=== PATIENT | male | born 1950 | race Hispanic/Latino ===

== ENCOUNTER 2016-05-20 06:58 | Emergency (ER) | payer MEDICARE, BC ==
--- NOTE | 2016-05-20 07:26 | ERNOTE ---
Dizziness ER Record Date of Service: 05/20/16 Presenting Symptoms: dizziness Time Seen by Provider: 05/20/16 07:24 Source: patient Immunizations: IMMUNIZATION HX Immunizations Up to Date Yes History of Influenza Vaccine Yes Hx Pneumococcal Vaccination Yes Allergies/Adverse Reactions: Allergies Allergy/AdvReac Type Severity Reaction Status Date / Time vancomycin AdvReac Other Verified 05/20/16 07:09 Home Medications: HOME MEDICATIONS Aspirin [Ecotrin] 81 mg PO DAILY 10/13/13 [Last Taken 04/26/14 07:00 81 mg] Carvedilol [Coreg] 25 mg PO BID 10/13/13 [Last Taken 04/26/14 07:00 25 mg] Gabapentin 300 mg PO HS 10/13/13 [Last Taken 04/25/14 17:00 300 mg] Insulin Glargine,Hum.rec.anlog [Lantus] 20 units SC BID 10/13/13 [Last Taken 08/05 07:00 20 u] [address] Oil/[place]-3 Fatty Acids [Fish Oil] 1,200 mg PO DAILY 10/13/13 [Last Taken 04/26/14 07:00 1] L. Acidophilus/L.bulgaricus [Lactinex Packet] 1 each PO AC #0 box 11/17/13 [ Last Taken Unknown] Furosemide [Lasix] 40 mg PO DAILY 04/26/14 [Last Taken 04/26/14 07:00 40 MG] Lisinopril [Zestril] 10 mg PO DAILY 04/26/14 [Last Taken 04/26/14 07:00 10 MG] Simvastatin [Zocor] 40 mg PO DAILY 04/26/14 [Last Taken 04/25/14 17:00 40 MG] Oseltamivir Phosphate [Tamiflu] 75 mg PO DAILY #10 cap 05/20/16 [Last Taken Unknown] - History of Present Illness Narrative: Sixto has not been feeling good for the last 2-3 days. Complaints of mild coughing, and a fever of 102 at about 0300 hours. He denies any pain, shortness of breath, chills, N/V/D. The triage complaint had been dizziness, but on further questioning, there was no vertigo or light headedness, but has been feeling a bit "off". Denies any weakness in the upper or lower extremities or headaches. The had the flu three weeks ago. 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 Denies any chest pain with walking or stair climbing. PMH: DM, CAD, Renal failure, [place] PSH: Left toes amputation; CABG Timing and Duration: sudden onset Severity: max: mild Severity: currently: mild Associated Symptoms: Present: none Sense of movement: Present: none Fainted/near fainted while:: Absent: standing, sitting, supine Decreased ability to stand/walk:: Present: weak - minimal Modifying Factors - (Improves): Reports: nothing Modifying Factors - (Worsens): Reports: other - nothing Review of Systems - Review of Systems Constitutional: Present: See HPI EYE: Present: no symptoms reported ENT: Present: no symptoms reported Respiratory: Present: no symptoms reported Cardiology: Present: no symptoms reported Gastrointestinal/Abdominal: Present: no symptoms reported Genitourinary: Present: no symptoms reported Musculoskeletal: Present: no symptoms reported Skin: Present: no symptoms reported Neurological: Present: no symptoms reported Endocrine: Present: no symptoms reported Hematologic/Lymphatic: Present: no symptoms reported Psych: Present: no symptoms reported - Patient's Past Medical History Patient History - Medical: Diabetes Type 2 Insulin Dependent, Renal Failure Patient History - Cardiac/Respiratory: No pertinent hx Patient History - Cancer: No Hx of Cancer Patient History - Surgical Procedures: Cholecystectomy Patient History - Other: None - Social History Living Situations: other Smoking Status: Current every day smoker Have you smoked in the past 12 months: Yes Do you dip or chew tobacco: No Patient requests Smoking Cessation Consult: No Initiate information on Smoking Cessation: No Alcohol Use: none Drug Use: none - Immunizations Immunizations Up to Date: Yes Hx Pneumococcal Vaccination: Yes History of Influenza Vaccine: Yes Physical Exam - Physical Exam General Appearance: Present: no apparent distress Eye Exam: Normal inspection: bilateral Ears, Nose, Throat: Present: normal ENT inspection Neck: Present: normal inspection Respiratory: Present: no respiratory distress, normal breath sounds, no accessory muscle use Cardiovascular/Chest: Present: regular rate, rhythm Gastrointestinal/Abdominal: Present: nontender, nondistended, soft, no organomegaly Back Exam: Present: normal inspection, normal range of motion Extremity Exam: Present: normal inspection Skin Exam: Present: normal color ED Progress - Results and Orders Patient's Lab Results:: I have reviewed the patient's lab results. - Vital Signs Patient's Vital Signs:: I have reviewed the patient's vital signs. Vital Signs: Vital Signs 05/20/16 05/20/16 07:02 07:16 Temperature 37.5 C 37.5 C Pulse Rate 94 94 Respiratory 16 16 Rate Blood Pressure 147/75 147/75 O2 Sat by Pulse 90 100 Oximetry - EKG EKG: NSR, ST depression - lateral leads; inverted T waves inferiorly., other EKG read: Interp. by me EKG Comments: In comparison to the EKG from 04/06/11 the ischemic pattern is new. - Progress/Reassessment Chief Complaint: Dizziness Progress:: Unchanged Progress Note-Subjective: 05/20/16 08:09 Stable. 05/20/16 08:17 The radiology reading did suggest mild CHF. In light the patient not having any shortness of breath or pain, it is unlikely that there is any clinically significant CHF. 05/20/16 08:[address] Dooley (cardiology) who will arrange an early follow up. - Transfer of Care Expected Disposition: Discharge Departure Clinical Impression: Influenza A - Departure Disposition: Home self-care Condition: Good Instructions: Influenza, Adult, [id number] Print Language: Norwegian Additional Instructions: Follow up with your physician on Sunday. If you feel worse return to the ED as needed. Dr. Dooley will have someone from the office contact you next week to have an early follow up with cardiology. If you have any chest pain return to the ED for evaluation. Referrals: Steve Cervantes MD [Primary Care Provider] - Prescriptions: Oseltamivir Phosphate [Tamiflu] 75 mg PO DAILY #10 cap
[2016-05-20 07:32] LABS: Hematocrit 28.9 % (42.0-52.0); Hemoglobin 10.1 gm/dL (13.5-18.0); Mean Cell Volume 114.2 fl (78-100); Mean Corpuscular Hemoglobin 39.9 pg (27-31); Mean Corpuscular Hgb Conc 34.9 g/dl (32-36); Mean Platelet Volume 12.1 fl (6.0-9.5); Neutrophil # 2.9 K/mm3 (1.3-6.0); Neutrophil % 84.1 % (42-75.0); Platelet Count 83 K/mm3 (150-450); Red Blood Count 2.53 M/mm3 (4.7-6.0); Red Cell Distribution Width 14.3 % (11.5-14.0); White Blood Count 3.5 K/mm3 (4.0-10.5)
[2016-05-20 07:48] LABS: Anion Gap 10.5 mmol/L (6.8-13.8); BUN/Creatinine Ratio 15.2 (9.0-21.6); Carbon Dioxide 27.4 mmol/L (24-32.6); Estimated Creat Clear 30.7; Potassium 4.9 mmol/L (3.4-4.6)
[2016-05-20 07:49] LABS: Troponin I 0.092 ng/ml (0.00-0.10)
[2016-05-20 08:23] LABS: Urine Bilirubin Negative (NEGATIVE); Urine Blood 250 /ul (NEGATIVE); Urine Ketone 5 mg/dL (NEGATIVE); Urine Nitrite Negative (NEGATIVE); Urine Protein >=300 mg/dL (NEGATIVE); Urine Specific Gravity 1.025 SP.GR. (1.005-1.030); Urine Urobilinogen 4 EU/dl (NORMAL)
[2016-05-20 08:29] LABS: Urine Color Dark Yellow
[2016-05-20 08:30] LABS: Urine Appearance Slightly Cloudy; Urine Bacteria None Seen; Urine WBC 0-5 /hpf (0-5)
[2016-05-20 08:52] VITALS: BP 165/90
== END 2016-05-20 08:51 | disposition home or self-care (01) ==
LOC: ER 06:58
DX: J10.1 Influenza due to other identified influenza virus with other respiratory manifestations (principal)

== ENCOUNTER 2016-09-26 06:38 | Day surgery (SDC) | payer MEDICARE, BC ==
[~2016-09-26 06:38] MED LIST: RINGERS SOLUTION,LACTATED 1,000 ML IV PRN
--- OUTSIDE RECORDS SUMMARY | 2016-09-26 06:43 | XMS REPORT | Continuity of Care Document ---
:1950 Author Organization [facility] ([facility]) Address [address] [place] [address] Phone [phone] Care Team Providers Name Role Phone ElizabethSteve omalley Primary Care Provider [phone] Source Comments This disclosure is being made pursuant to the Care Everywhere program, applicable federal and state laws, and may not contain all informaitonavailable regarding this patient.[facility] ([facility]) Active Allergies and Adverse Reactions Allergen Noted Date Severity Reactions Comments Vancomycin 10/23/2011 Rash In 08/2011, had stump site infection. On vanc and Piperacillin/Tazobactam. Had rash. We stopped Piperacillin/Tazobactam, but rash continued. We stopped Vanc and rash disappeared. Current Medications Prescription Sig. Disp. Refills Start Date End Date Status aspirin 81 mg EC tablet Take 81 mg by mouth Active daily. carvedilol 25 mg tablet Take 25 mg by mouth Active 2 times daily with meals. gabapentin 300 mg Take 300 mg by mouth Active capsule at bedtime as needed. Indications: NEUROPATHIC PAIN simvastatin 40 mg tablet Take 40 mg by mouth Active every evening. insulin glargine Inject 20 U SC twice 10 mL 11 10/13/2013 Active (LanTUS) 100 unit/mL daily Indications: injection vial TYPE 2 DIABETES MELLITUS SUPPLY CONTOUR test 2 06/25/2015 Active strips SUPPLY MICROLET lancets 2 06/15/2015 Active potassium chloride 10 2 06/09/2015 Active mEq tablet SUPPLY insulin syringe 1 06/23/2015 Active w/ needle U-100 0.5 mL 30 g amLODIPine 2.5 mg tablet TK 1 T PO QD 3 11/29/2015 Active FLUVIRIN 1829-4672 45 ADM 0.5ML IM UTD 0 12/06/2015 Active mcg (15 mcg x 3)/0.5 mL susp furosemide 20 mg tablet TK 1 T PO QD 3 11/17/2015 Active lisinopril 40 mg tablet TK 1 T PO QD 3 11/29/2015 Active SUPPLY insulin syringe USING TID 3 11/16/2015 Active w/ needle U-100 1 mL 30 g x 11/05" cholecalciferol (VITAMIN Take 2,000 Units by Active D3) 2,000 unit capsule mouth daily. omega-3 fatty acids 1 Take 2 g by mouth 2 Active gram capsule times daily. 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 Right Eye Left Eye Time To Recurrence: Time To Recurrence: Date VA (D cc) CMT Status Procedure VA (D cc) CMT Status Procedure Cmts 01/03/2016 20/40 sc Avastin 242482-8 30 -2 sc IMO Update Anemia 10/07/2013 Overview: Asymptomatic, will monitor Type 2 diabetes mellitus with diabetic foot ulcer 10/06/2013 Overview: Consider endocrine consult, monitor blood sugars adjust insulin Hyperkalemia 10/06/2013 Overview: Monitor electrolytes Carotid artery stenosis 10/28/2012 Overview: Carotid 1) BILATERAL ATHEROSCLEROTIC DISEASE OF THE CAROTID ARTERIES. 2) LEFT-SIDE VELOCITY MEASUREMENTS AND OTHER CRITERIA CORRESPONDS TO APPROXIMATELY 50-59% STENOSIS. 3) NO SIGNIFICANT HEMODYNAMICALLY SIGNIFICANT STENOSIS ON THE RIGHT SIDE. 06/24 Osteomyelitis 09/14/2011 Overview: Amputation and Iv antibiotics PVD (peripheral vascular disease) 07/26/2011 Overview: Vascular History: Risk factors: smoking, HTN, DM Cardiac history: 4 vessel CABG 1999 (outside hospital) Anti-thrombotic medication: aspirin and plavix: will stop plavix today, Apr 29, 2012 Carotid screenin04/10/11: right ICA 1-49%, left ICA 50-59% ~ October 2012: Right ICA 1-49%, Left ICA 50-59%, Verts antegrade Aortic screening: negative on 04/10/2011 Vascular Procedures: ~ Right TA angioplasty and 1st toe amputation on 06/07/11 ~ Right TA angioplasty and 1st toe amputation site debridement 07/26/11 ~ 09/11/2011 Incision and drainage of right forefoot abscess. (Mayra) ~ 08/27/2013 Pelvic and left lower extremity arteriographyAngioplasty of high- grade stenosis of the proximal anterior tibial artery.(Mayra) ~10/04/2013 Left 3rd and 4th toe amputation (Lisa) ~04/13/2014: Revision of left foot transmetatarsal amputation with debridement Closure of amputation stump Gangrene of toe 06/07/2011 Overview: S/p left 3rd, 4th toe amputations. Debridement of forefoot. Dakins' dressing changes. -PT consulted: NWB on LLE. Recommend SNF. Coronary artery disease Overview: Formatting of this note may be different from the original. CARDIOVASCULAR PROCEDURES TOWER DRAGLINE OPERATOR: Cath (EF.78, 100% Mid LAD, 70% Distal CX, 100% Mid RCA, Right Dominant, PUTNAM graft to LAD patent.SVG to OM1 patent. SVG OM2 patent. SVG RCA patent.) - 2005 ECHO/MUGA: Echo (Normal EF, Mild LVH) - 10/23/2006 Echo (EF.35, Dilated cardiomyopathy.) - 10/28/2001 Carotid 1) BILATERAL ATHEROSCLEROTIC DISEASE OF THE CAROTID ARTERIES. 2) LEFT-SIDE VELOCITY MEASUREMENTS AND OTHER CRITERIA CORRESPONDS TO APPROXIMATELY 50-59% STENOSIS. 3) NO SIGNIFICANT HEMODYNAMICALLY SIGNIFICANT STENOSIS ON THE RIGHT SIDE. 06/24 Hypertension Hyperlipidemia Hx of CABG Resolved Problems Problem Noted Date Resolved Date PICC (peripherally inserted central catheter) in place 05/19/2014 07/10/2015 Medication monitoring encounter 05/19/2014 07/10/2015 Anemia due to blood loss, acute 04/14/2014 07/10/2015 Overview: Monitor vital signs and h/h replace per protocol Pain in left extremity 04/14/2014 07/10/2015 Acute blood loss anemia 04/13/2014 07/10/2015 Overview: Asymptomatic monitor and replace per University protocol Diabetic hypoglycemia 10/09/2013 07/10/2015 Overview: Treated w/ D50 Acute hyperglycemia 10/07/2013 07/13/2015 Overview: Sliding scale insulin, monitor CBG Atherosclerosis of [place] arteries of the extremities, 10/28/2012 10/06/2013 unspecified longterm current use of antibiotics 10/12/2011 10/06/2013 Infection 09/14/2011 07/13/2015 Overview: Monitor CBC and vital signs Non-healing amputation site 09/11/2011 07/13/2015 Overview: Monitor site, check CBC daily Diabetes mellitus 07/26/2011 10/06/2013 Amputation of great toe, right, traumatic 06/08/2011 10/06/2013 Overview: Not traumatic Pain 06/08/2011 10/06/2013 Diabetic 05/04/2010 10/06/2013 Overview: Other Ocular Diagnoses: 1. None Ocular Procedures OD: 1. None 2. Ocular Procedures OS: 1. Phaco/IOL Non-Ocular Medical History: 1. DM 2. HTN 3. Cardiac bypass surgery Most Recent Encounters Date Type Specialty Providers Description 07/20/2016 Office Visit Heart and Vascular Lilia Grover MD Chief Comp: Patient Reported Reason For Visit 07/10/2016 [facility] Heart and Vascular Heidi Nunez Chief Comp: Patient Encounter MD Diana Reported Reason For Visit 07/10/2016 [facility] Heart and Vascular Heidi Nunez Chief Comp: Patient Encounter MD Diana Reported Reason For Visit 07/10/2016 [facility] Heart and Vascular Default, Other Chief Comp: Patient Encounter Billg - Defo Reported Reason For Heidi Nunez Visit MD Diana 07/10/2016 Office Visit Srg Vascular Default, Other Dx: PVD (peripheral Billg - Defo vascular disease) Heidi Nunez (Primary Dx) MD Diana 07/03/2016 Office Visit Ophthalmology - Evin Powers MD Chief Comp: Patient Specialty Reported Reason For Visit Immunizations Name Dates Previously Given Next Due Influenza, unspecified 01/21/2014,01/21/2013,01/30/2011 Pneumococcal, unspecified 01/30/2010 Social History Tobacco Use Types Packs/Day Years Used Date Current Some Day Smoker Cigarettes 0.25 10 Smokeless Tobacco: Never Used Tobacco Cessation:Ready to Quit: No; Counseling Given: No Comments:was smoking 2 cigs a day before hospitalization Alcohol Use Drinks/Week oz/Week Comments No Last Filed Vital Signs Vital Sign Reading Time Taken Blood Pressure 155/72 07/10/2016 11:10 AM CDT Pulse 86 07/10/2016 11:10 AM CDT Temperature 36.4 C (97.5 F) 07/10/2016 11:08 AM CDT Respiratory Rate 18 04/14/2014 4:21 PM SPECIAL EDUCATION ADMINISTRATOR Height 1.626 m (5' 4.02") 07/10/2016 11:08 AM CDT Weight 78.1 kg (172 lb 2.9 oz) 07/10/2016 11:08 AM CDT Body Mass Index 29.54 07/10/2016 11:08 AM CDT Oxygen Saturation 95% 04/14/2014 4:21 PM SPECIAL EDUCATION ADMINISTRATOR Plan of Care Date Type Specialty Providers Description 05/29/2017 Appointment Heart and Vascular Lilia Grover MD Chief Comp: Patient [address] [place] [address] Visit [phone] (Fax) Health Maintenance Due Date Last Done Comments HCV Screening 1950 Hepatitis B Vaccine (1 of 3 - Primary 1950 Series) Tdap Vaccine 1960 DIABETIC: Cholesterol 11/08/1967 Diabetic: Hdl 11/08/1967 Diabetic: Ldl 11/08/1967 DIABETIC: Microalbumin 11/08/1967 DIABETIC: Triglycerides 11/08/1967 Td Vaccine 11/08/1967 Colonoscopy 1999 Prostate Cancer Screening 11/08/1999 Zoster Vaccine 2009 DIABETIC: Foot Exam 10/04/2010 DIABETIC: Retinal Eye Exam 10/04/2010 DIABETIC: Hemoglobin A1C 04/06/2014 10/05/2013, 05/15/2011 Pneumococcal Vaccine (1 of 2 - PCV13) 2014 Influenza Vaccine: Seasonal Completed 01/21/2014, 01/21/2013, 01/30/2011 Results from Last 3 Months VASC LINDY, PVR, TOE BP (07/10/2016 10:58 AM) Component Value Range VASC RIGHT TOE PRESSURE AMP mmHg VASC LEFT TOE PRESSURE AMP mmHg VASC LOWER EXT ARTERIAL DUPLEX (UNILATERAL) (07/10/2016 10:58 AM) Component Value Range VASC LEFT RESTAURANT OPERATIONS MANAGER DIST PSV 118 cm/sec VASC LEFT RESTAURANT OPERATIONS MANAGER DIST PEDV 0 cm/sec VASC LEFT PROFUNDA PSV 92 cm/sec VASC LEFT PROFUNDA PEDV 0 cm/sec VASC LEFT SUPER FEMORAL PROX PSV 105 cm/sec VASC LEFT SUPER FEMORAL PROX PEDV 0 cm/sec VASC LEFT SUPER FEMORAL MID PSV 99 cm/sec VASC LEFT SUPER FEMORAL MID PEDV 0 cm/sec VASC LEFT SUPER FEMORAL DIST PSV 87 cm/sec VASC LEFT SUPER FEMORAL DIST PEDV 0 cm/sec VASC LEFT POPLITEAL AK PSV 111 cm/sec VASC LEFT POPLITEAL AK PEDV 0 cm/sec VASC LEFT POPLITEAL BK PSV 142 cm/sec VASC LEFT POPLITEAL BK PEDV 0 cm/sec VASC LEFT FIBER DRIER OPERATOR PROX PSV 72 cm/sec VASC LEFT FIBER DRIER OPERATOR PROX PEDV 0 cm/sec VASC LEFT PERONEAL MID PSV 21 cm/sec VASC LEFT PERONEAL MID PEDV 0 cm/sec VASC LEFT PERONEAL DIST PSV 24 cm/sec VASC LEFT PERONEAL DIST PEDV 0 cm/sec VASC LEFT ANT TIBIAL PROX PSV 96 cm/sec VASC LEFT ANT TIBIAL PROX PEDV 0 cm/sec VASC LEFT ANT TIBIAL MID PSV 97 cm/sec VASC LEFT ANT TIBIAL MID PEDV 0 cm/sec VASC LEFT ANT TIBIAL DIST PSV 118 cm/sec VASC LEFT ANT TIBIAL DIST PEDV 16 cm/sec VASC LEFT DPA PSV 148 cm/sec VASC LEFT DPA PEDV 20 cm/sec
[2016-09-26] MEDS ORDERED: RINGERS SOLUTION,LACTATED 1,000 ML IV ONE (07:27)
[2016-09-26 09:21] VITALS: BP 152/67
--- NOTE | 2016-09-26 09:26 | OR ---
Operative Report - Dictated Report Narrative: Date: 09/26/2016 PRE: Occult blood, Weight loss POST: normal colon PROC: colonoscopy SURG: Shaheen Awad MD EBL: none SPEC: none ANES: MAC per RADIOLOGIC TECHNOLOGIST MAMMOGRAM Description: After informed consent and appropriate sedation the patient was placed in the left lateral decubitus position. A flexible fiberoptic video colonoscope was introduced and advanced under direct vision without difficulty to the cecum. The usual landmarks were identified. Preparation was good and good views were obtained. The findings were of a normal cecum, ascending colon, hepatic flexure, transverse colon, splenic flexure, descending colon, sigmoid colon, and rectum. The mucosal color, vasculature and texture were normal throughout. No suspicious masses were seen. The patient tolerated the procedure well without apparent complications and was discharged from the endoscopy suite in stable condition.
== END 2016-09-26 06:39 | disposition home or self-care (01) ==
LOC: AMB 06:38
PROVIDERS: ATTEND Specialist
PROC: 0DJD8ZZ Inspection of Lower Intestinal Tract, Via Natural or Artificial Opening Endoscopic (ICD-10-PCS; principal; 2016-09-26 08:20)
DX: Z12.11 Encounter for screening for malignant neoplasm of colon (principal); I11.0 Hypertensive heart disease with heart failure; I50.9 Heart failure, unspecified; I42.9 Cardiomyopathy, unspecified; E11.9 Type 2 diabetes mellitus without complications; E78.5 Hyperlipidemia, unspecified; D64.9 Anemia, unspecified; E53.8 Deficiency of other specified B group vitamins; I25.10 Atherosclerotic heart disease of native coronary artery without angina pectoris; R63.4 Abnormal weight loss; F17.210 Nicotine dependence, cigarettes, uncomplicated; Z68.29 Body mass index [BMI] 29.0-29.9, adult

== ENCOUNTER 2017-02-06 11:32 | Observation (INO) | payer MEDICARE, BC ==
[2017-02-06] MEDS ORDERED: ONDANSETRON HCL/PF 2 MG/ML VIAL IV ONE (12:07)
--- NOTE | 2017-02-06 12:10 | ERNOTE ---
Medical Problem HPI - Narrative Date of Service: 02/06/17 - General Chief Complaint: General Assessment Time Seen by Provider: 02/06/17 12:08 Source: patient Exam Limitations: no limitations - Immun/Allergies/Home Medications Immunizations: IMMUNIZATION HX Immunizations Up to Date Yes History of Influenza Vaccine Yes Hx Pneumococcal Vaccination Yes Allergies/Adverse Reactions: Allergies vancomycin Allergy (Intermediate, Verified 02/06/17 12:17) RASH Home Medications: HOME MEDICATIONS Aspirin [Ecotrin] 81 mg PO DAILY 10/13/13 [Last Taken 04/26/14 07:00 81 mg] Carvedilol [Coreg] 25 mg PO BID 10/13/13 [Last Taken 04/26/14 07:00 25 mg] Gabapentin 300 mg PO TID PRN 10/13/13 [Last Taken 04/25/14 17:00 300 mg] Insulin Glargine,Hum.rec.anlog [Lantus] 36 units SC QAM 10/13/13 [Last Taken 08/05 07:00 20 u] [place] Oil/[place]-3 Fatty Acids [Fish Oil] 1,200 mg PO DAILY 10/13/13 [Last Taken 04/26/14 07:00 1] Simvastatin [Zocor] 40 mg PO DAILY 04/26/14 [Last Taken 04/25/14 17:00 40 MG] Blood-Glucose Meter [Blood Glucose Monitoring] 1 each MC TID 09/12/16 [Last Taken Unknown] Cholecalciferol (Vitamin D3) [Vitamin D3] 2,000 unit PO DAILY 09/12/16 [Last Taken Unknown] Cyanocobalamin [Vitamin B-12] 1,000 mcg IJ Q30D 09/12/16 [Last Taken Unknown] Furosemide [Lasix] 10 mg PO DAILY 09/12/16 [Last Taken Unknown] Insulin Glargine,Hum.rec.anlog [Lantus] 30 units SC HS 09/12/16 [Last Taken Unknown] Lisinopril [Zestril] 20 mg PO DAILY 09/12/16 [Last Taken Unknown] - History of Present History Narrative: This patient is an extremely poor historian. He presents to the emergency room stating "I don't feel right" but I don't feel right he means that he feels slightly nauseated and has been wanting to throw up but has not vomited. He denies any chest pain shortness of breath palpitations or diaphoresis. Review of Systems - Review of Systems Constitutional: Present: weakness EYE: Present: no symptoms reported ENT: Present: no symptoms reported Respiratory: Present: no symptoms reported Cardiology: Present: no symptoms reported Gastrointestinal/Abdominal: Present: See HPI Genitourinary: Present: no symptoms reported Musculoskeletal: Present: no symptoms reported Skin: Present: no symptoms reported - Patient's Past Medical History Patient History - Medical: Anemia, Diabetes Type 2, Other Patient History - Cardiac/Respiratory: Coronary Heart Disease, CHF, Hyperlipidemia, Peripheral Vascular Disease Patient History - Cancer: No Hx of Cancer Patient History - Surgical Procedures: Cataracts, Cholecystectomy, Colonoscopy, Coronary Bypass Surgery, Cardiac stent, T & A, Other, Hernia Repair Patient History - Other: None - Family History Brother Family History - Medical: Diabetes Type 2 Family History - Cardiac/Respiratory: No pertinent hx Family History - Cancer: Other Father Family History - Medical: No pertinent hx Family History - Cardiac/Respiratory: Myocardial Infarction Family History - Cancer: No pertinent family hx Mother Family History - Medical: , Arthritis Family History - Cardiac/Respiratory: Pneumonia Family History - Cancer: No pertinent family hx Sister Family History - Medical: Other Family History - Cardiac/Respiratory: No pertinent hx Family History - Cancer: No pertinent family hx - Social History Living Situations: home Abuse History: No History of abuse Psych History: No pertinent hx Smoking Status: Current every day smoker Alcohol Use: none Drug Use: none - Immunizations Immunizations Up to Date: Yes Hx Pneumococcal Vaccination: Yes History of Influenza Vaccine: Yes Physical Exam - Physical Exam General Appearance: Present: wd/wn, alert, no apparent distress, nml sucking/ feed Head Exam: Present: no evidence of injury Ears, Nose, Throat: Present: normal ENT inspection Neck: Present: normal inspection, nontender Respiratory: Present: no respiratory distress, normal breath sounds, no accessory muscle use, chest nontender, lungs clear Cardiovascular/Chest: Present: regular rate, rhythm, no murmur, normal peripheral pulses Gastrointestinal/Abdominal: Present: normal bowel sounds, nontender, nondistended, soft, no organomegaly ED Progress - Results and Orders Patient's Lab Results:: I have reviewed the patient's lab results. - Vital Signs Patient's Vital Signs:: I have reviewed the patient's vital signs. Vital Signs: Vital Signs 02/06/17 11:46 Temperature 36.3 C L Pulse Rate 60 Respiratory 12 Rate Blood Pressure 145/70 - EKG EKG: NSR - H and does appear to have some ST segment depressions however he has no chest pain per se he only has nausea. - X-Ray X-Ray #1 X-Ray: chest - Progress/Reassessment Chief Complaint: General Assessment Plan - Plan Plan: In light of this patient's risk factors and findings on EKG I believe this patient warrants an [facility]. Chloe Fair was consulted in regards to this patient and patient will be admitted. Patient's nausea was treated with Zofran 4 mg IV and Plavix, aspirin , and Lipitor were given. Departure Clinical Impression: Abnormal EKG - Departure Disposition: [facility] Condition: Fair Referrals: Steve Cervantes MD [Primary Care Provider] -
[2017-02-06] MEDS ORDERED: ONDANSETRON HCL/PF 2 MG/ML VIAL ONE (12:13)
[2017-02-06 12:21] LABS: Hematocrit 39.1 % (42.0-52.0); Hemoglobin 13.5 gm/dL (13.5-18.0); Mean Cell Volume 91.6 fl (78-100); Mean Corpuscular Hemoglobin 31.6 pg (27-31); Mean Corpuscular Hgb Conc 34.5 g/dl (32-36); Neutrophil # 6.3 K/mm3 (1.3-6.0); Neutrophil % 82.1 % (42-75.0); Platelet Count 127 K/mm3 (150-450); Red Blood Count 4.27 M/mm3 (4.7-6.0); Red Cell Distribution Width 13.1 % (11.5-14.0); White Blood Count 7.6 K/mm3 (4.0-10.5)
[2017-02-06 12:47] LABS: Troponin I 0.021 ng/ml (0.00-0.10)
[2017-02-06 12:52] LABS: Albumin * 2.9 gm/dl (3.4-5.0); Anion Gap 12.4 mmol/L (6.8-13.8); BUN/Creatinine Ratio 18.6 (9.0-21.6); Bilirubin, Total 0.8 mg/dL (0.0-1.1); CKMB 0.5 ng/mL (0.0-9.0); Ca. Corrected For Albumin 9.1 mg/dL (8.4-10.2); Calcium * 8.5 mg/dL (7.9-10.9); Carbon Dioxide 28.2 mmol/L (24-32.6); Potassium 4.6 mmol/L (3.4-4.6); Total Protein 6.9 gm/dL (6.2-8.2)
[2017-02-06] MEDS ORDERED: ASPIRIN 81 MG TAB.CHEW PO ONE (13:25)
[2017-02-06] MEDS ORDERED: CLOPIDOGREL BISULFATE 75 MG TABLET PO STA (13:25)
[2017-02-06] MEDS ORDERED: ATORVASTATIN CALCIUM 40 MG TABLET PO ONE (13:26)
[2017-02-06] MEDS ORDERED: ATORVASTATIN CALCIUM 40 MG TABLET ONE (13:30)
[2017-02-06] MEDS ORDERED: CLOPIDOGREL BISULFATE 75 MG TABLET ONE (13:31)
[2017-02-06] MEDS ORDERED: ASPIRIN 81 MG TAB.CHEW ONE (13:31)
[2017-02-06] MEDS ORDERED: GABAPENTIN 300 MG CAPSULE PO PRN (17:21)
--- NOTE | 2017-02-06 17:29 | HP ---
Chief Complaint - Chief Complaint Date of Service: 02/06/17 Time of Service: 17:24 Chief Complaint: I don' feel well History of Present Illness: This is a 66 year old diabetic man with hypertension, hyperlipidemia and obesity who came to the [facility] ER because he didn't feel well. He said "I don't feel right" meaning he felt slightly nauseated and had been wanting to throw up but did not. He denied any chest pain, shortness of breath palpitations or diaphoresis. With these subtle complaints, in combination with multiple risk factors, he was admitted for coronary disease observation overnight. He normally sees Dr. Cervantes, but I was oncall, so tonight he came to me. Right now he feels ok. - Patient's Past Medical History Patient History - Medical: Anemia, Diabetes Type 2, Other Patient History - Cardiac/Respiratory: Coronary Heart Disease, CHF, Hyperlipidemia, Peripheral Vascular Disease Patient History - Cancer: No Hx of Cancer Patient History - Surgical Procedures: Cataracts, Cholecystectomy, Colonoscopy, Coronary Bypass Surgery, Cardiac stent, T & A, Other, Hernia Repair Patient History - Other: None - Family History Brother Family History - Medical: Diabetes Type 2 Family History - Cardiac/Respiratory: No pertinent hx Family History - Cancer: Other Father Family History - Medical: No pertinent hx Family History - Cardiac/Respiratory: Myocardial Infarction Family History - Cancer: No pertinent family hx Mother Family History - Medical: , Arthritis Family History - Cardiac/Respiratory: Pneumonia Family History - Cancer: No pertinent family hx Sister Family History - Medical: Other Family History - Cardiac/Respiratory: No pertinent hx Family History - Cancer: No pertinent family hx - Social History Living Situations: significant other Abuse History: No History of abuse Psych History: No pertinent hx Smoking Status: Current every day smoker Have you smoked in the past 12 months: Yes Do you dip or chew tobacco: No Smoking Start Date: 04/23/97 Patient requests Smoking Cessation Consult: No Initiate information on Smoking Cessation: No Alcohol Use: none Drug Use: none - Immunizations Immunizations Up to Date: Yes Hx Pneumococcal Vaccination: Yes History of Influenza Vaccine: Yes Review Of Systems (GEN) - Review of Systems Generalized/Overall Review: Present: No Symptoms Reported EENTM: Present: No Symptoms Reported Respiratory: Present: No Symptoms Reported Cardiac: Present: No Symptoms Reported Abdominal: Present: No Symptoms Reported Genitourinary: Present: No Symptoms Reported Musculoskeletal: Present: No Symptoms Reported Neurological: Present: No Symptoms Reported Skin: Present: No Symptoms Reported Endocrine: Present: No Symptoms Reported Misc: All systems neg except as marked Immunizations: IMMUNIZATION HX Immunizations Up to Date Yes History of Influenza Vaccine Yes Hx Pneumococcal Vaccination Yes Allergies/Adverse Reactions: Allergies Allergy/AdvReac Type Severity Reaction Status Date / Time vancomycin Allergy Intermediate RASH Verified 02/06/17 12:17 Home Medications: HOME MEDICATIONS Aspirin [Ecotrin] 81 mg PO DAILY 10/13/13 [Last Taken 04/26/14 07:00 81 mg] Carvedilol [Coreg] 25 mg PO BID 10/13/13 [Last Taken 04/26/14 07:00 25 mg] Gabapentin 300 mg PO TID PRN 10/13/13 [Last Taken 04/25/14 17:00 300 mg] Insulin Glargine,Hum.rec.anlog [Lantus] 36 units SC QAM 10/13/13 [Last Taken 08/05 07:00 20 u] [place] Oil/[place]-3 Fatty Acids [Fish Oil] 1,200 mg PO DAILY 10/13/13 [Last Taken 04/26/14 07:00 1] Simvastatin [Zocor] 40 mg PO DAILY 04/26/14 [Last Taken 04/25/14 17:00 40 MG] Blood-Glucose Meter [Blood Glucose Monitoring] 1 each MC TID 09/12/16 [Last Taken Unknown] Cholecalciferol (Vitamin D3) [Vitamin D3] 2,000 unit PO DAILY 09/12/16 [Last Taken Unknown] Cyanocobalamin [Vitamin B-12] 1,000 mcg IJ Q30D 09/12/16 [Last Taken Unknown] Furosemide [Lasix] 10 mg PO DAILY 09/12/16 [Last Taken Unknown] Insulin Glargine,Hum.rec.anlog [Lantus] 30 units SC HS 09/12/16 [Last Taken Unknown] Lisinopril [Zestril] 20 mg PO DAILY 09/12/16 [Last Taken Unknown] Exam - Exam Vital Signs: Vital Signs - Last Taken Selected Entries 02/06/17 15:00 Temperature 36.5 C Temperature Oral Source Pulse Rate 65 Respiratory 20 Rate Blood Pressure 163/76 Blood Pressure Supine Position O2 Sat by Pulse 96 Oximetry Oxygen Delivery Room Air Method Constitutional: Present: Alert, Oriented x3, Cooperative, Well developed, Well nourished, No distress ENT Exam: Present: hearing grossly normal Eye Exam: bilateral eye: normal inspection, PERRL, EOMI Neck: Present: supple Back Exam: Present: normal inspection Respiratory: Present: normal breath sounds, no respiratory distress Cardiovascular/Chest: Present: regular rate, rhythm, no murmur Abdomen: Present: Normal bowel sounds, soft, nontender, nondistended, no rebound tenderness, no hepatospenomegaly Extremity: Present: normal inspection, no pedal edema Skin Exam: Present: normal color, warm/dry, no cyanosis Neurologic: Present: alert, oriented x 3 Appearance: Present: appropriate appearance, appropriate insight, neat, no memory impairment Eye contact: Present: cooperative, good eye contact, normal speech Thoughts: Present: normal thought pattern Diagnostic Studies: Laboratory Results WBC 7.6 K/mm3 (4.0-10.5) 02/06/17 12:18 RBC 4.27 M/mm3 (4.7-6.0) L 02/06/17 12:18 Hgb 13.5 gm/dL (13.5-18.0) 02/06/17 12:18 Hct 39.1 % (42.0-52.0) L 02/06/17 12:18 MCV 91.6 fl (78-100) 02/06/17 12:18 MCH 31.6 pg (27-31) H 02/06/17 12:18 MCHC 34.5 g/dl (32-36) 02/06/17 12:18 RDW 13.1 % (11.5-14.0) 02/06/17 12:18 Plt Count 127 K/mm3 (150-450) L 02/06/17 12:18 MPV 12.0 fl (6.0-9.5) H 02/06/17 12:18 Immature Gran % (Auto) 0.10 % (0.001-0.429) 02/06/17 12:18 Immature Gran # (Auto) 0.01 K/mm3 (0.000-0.0310) 02/06/17 12:18 Neutrophils % 82.1 % (42-75.0) H 02/06/17 12:18 Lymphocytes % 11.2 % (20-51) L 02/06/17 12:18 Monocytes % 4.1 % (0.0-9) 02/06/17 12:18 Eosinophils % 1.8 % (0.0-3.0) 02/06/17 12:18 Basophils % 0.7 % (0.0-1.0) 02/06/17 12:18 Nucleated RBC % 0.0 k/mm3 (0-1) 02/06/17 12:18 Neutrophils # 6.3 K/mm3 (1.3-6.0) H 02/06/17 12:18 Lymphocytes # 0.9 k/mm3 (1.5-3.5) L 02/06/17 12:18 Monocytes # 0.3 k/mm3 (0.0-1.0) 02/06/17 12:18 Eosinophils # 0.1 k/mm3 (0.0-0.7) 02/06/17 12:18 Absolute Basophils 0.1 k/mm3 (0.0-0.1) 02/06/17 12:18 Sodium 139 mmol/L (132-142) 02/06/17 12:18 Plasma Sodium 142 mmol/L (130-142) 02/06/17 12:18 Potassium 4.6 mmol/L (3.4-4.6) 02/06/17 12:18 Chloride 103 mmol/L (97-106) 02/06/17 12:18 Carbon Dioxide 28.2 mmol/L (24-32.6) 02/06/17 12:18 Anion Gap 12.4 mmol/L (6.8-13.8) 02/06/17 12:18 BUN 30 mg/dL (6-23) H 02/06/17 12:18 Creatinine 1.61 mg/dL (0.4-1.4) H 02/06/17 12:18 Est GFR (Non-Af Amer) 46 mL/min (60-130) L 02/06/17 12:18 BUN/Creatinine Ratio 18.6 (9.0-21.6) 02/06/17 12:18 Random Glucose 287 mg/dL (70-110) H 02/06/17 12:18 Calcium 8.5 mg/dL (7.9-10.9) 02/06/17 12:18 Calcium Adj for Albumin 9.1 mg/dL (8.4-10.2) 02/06/17 12:18 Total Bilirubin 0.8 mg/dL (0.0-1.1) 02/06/17 12:18 AST 18 U/L (0-48) 02/06/17 12:18 ALT 18 U/L (19-67) L 02/06/17 12:18 Alkaline Phosphatase 95 U/L (50-170) 02/06/17 12:18 CK-MB (CK-2) 0.5 ng/mL (0.0-9.0) 02/06/17 12:18 Troponin I 0.021 ng/ml (0.00-0.10) 02/06/17 12:18 Total Protein 6.9 gm/dL (6.2-8.2) 02/06/17 12:18 Albumin 2.9 gm/dl (3.4-5.0) L 02/06/17 12:18 Assessment/Plan - Narrative Narrative: repeat troponin. repeat EKG. Dr. Cervantes will assume care in the morning. - Assessment/Plan (1) Nausea Problem: Acute (2) Hypertension Problem: Chronic Qualifiers: Hypertension type: essential hypertension Qualified Code(s): I10 - Essential (primary) hypertension (3) Hyperlipidemia Problem: Chronic Qualifiers: Hyperlipidemia type: unspecified Qualified Code(s): E78.5 - Hyperlipidemia , unspecified (4) Diabetes Problem: Chronic Qualifiers: Diabetes mellitus type: type 2 (5) Chest pain, rule out acute myocardial infarction Problem: Acute (6) borderline obesity Problem: Chronic (7) slightly elevated troponin Problem: Acute
[2017-02-06] MEDS ORDERED: ACETAMINOPHEN 325 MG TABLET PO PRN (17:33)
[2017-02-06] MEDS ORDERED: INSULIN GLARGINE,HUM.REC.ANLOG 100 UNITS/ML VIAL SC SCH (21:00)
[2017-02-06] MEDS: CARVEDILOL 25 MG TABLET PO SCH (21:09)
--- NOTE | 2017-02-07 07:45 | DS ---
(1) Nausea Problem: Acute (2) Abnormal EKG Diagnosis(s): NSR , consider lateral ischemia Problem: Resolved (3) slightly elevated troponin Diagnosis(s): likely renal related Problem: Acute (4) Diabetes Problem: Chronic Qualifiers: Diabetes mellitus type: type 2 (5) Hyperlipidemia Problem: Chronic Qualifiers: Hyperlipidemia type: unspecified Qualified Code(s): E78.5 - Hyperlipidemia , unspecified (6) Hypertension Problem: Chronic Qualifiers: Hypertension type: essential hypertension Qualified Code(s): I10 - Essential (primary) hypertension (7) Chronic renal failure, stage 3 (moderate) Problem: Chronic Description of Stay: Sixto Mehta, is a 66 year old diabetic man with CAD s/p CABG, hypertension, hyperlipidemia . PAD and obesity who came to the [facility] ER on 02/06/2017 and was admitted for " he didn't feel well" and abnormal EKG. 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 He denied any chest pain, shortness of breath palpitations or diaphoresis. With these subtle complaints, in combination with multiple risk factors, he was admitted for coronary disease observation overnight. He was given an antinausea medicine and has been asymptomatic overnight. His EKG showed NSR with ST-T wave changes , consider lateral ischemia. His troponin was 0.021 and o.022 respectively. AMI was rled out. Will schedule him an outpatient nuclear pharmacologic stress test. He has been CP , nausea free since admission. Procedures Performed: none Discharge Disposition: Home self care Disposition: Home self-care Condition: Stable Discharge Activity: Activity as tolerated Discharge Diet: Consistent carbs Referrals: Steve Cervantes MD [Primary Care Provider] - Additional Patient Instructions (free text): Please make TCM appointment at discharge, if applicable. Thank you! Em @ [phone]. Please schedule a pharmacologic nuclear stress test. follow up with PCP in 1 week. Prescriptions (Any new or edited meds): Promethazine HCl 12.5 mg PO QID PRN #20 tablet PRN Reason: Nausea And Vomiting Complete Home Medications List: Complete Home Medication List: Aspirin [Ecotrin] 81 mg PO DAILY 10/13/13 Carvedilol [Coreg] 25 mg PO BID 10/13/13 Gabapentin 300 mg PO TID PRN 10/13/13 Insulin Glargine,Hum.rec.anlog [Lantus] 36 units SC QAM 10/13/13 [place] Oil/[place]-3 Fatty Acids [Fish Oil] 1,200 mg PO DAILY 10/13/13 Simvastatin [Zocor] 40 mg PO DAILY 04/26/14 Blood-Glucose Meter [Blood Glucose Monitoring] 1 each MC TID 09/12/16 Cholecalciferol (Vitamin D3) [Vitamin D3] 2,000 unit PO DAILY 09/12/16 Cyanocobalamin [Vitamin B-12] 1,000 mcg IJ Q30D 09/12/16 Furosemide [Lasix] 10 mg PO DAILY 09/12/16 Insulin Glargine,Hum.rec.anlog [Lantus] 30 units SC HS 09/12/16 Lisinopril [Zestril] 20 mg PO DAILY 09/12/16 Promethazine HCl 12.5 mg PO QID PRN #20 tablet 02/07/17 Amb Orders for Discharge: Nuc Pharmacological Stress Location: Determined By Patient
[2017-02-07 08:03] VITALS: BP 155/64
[2017-02-07] MEDS: CARVEDILOL 25 MG TABLET PO SCH (08:25)
[2017-02-07] MEDS ORDERED: NON-FORMULARY 1 DOSE DOSE (Blood-Glucose Meter [Blood Glucose Monitoring] 1 EACH) MC SCH (09:00)
[2017-02-07] MEDS ORDERED: LISINOPRIL 20 MG TABLET PO SCH (09:00)
[2017-02-07] MEDS ORDERED: OMEGA-3 FATTY ACIDS 1 CAP CAPSULE PO SCH (09:00)
[2017-02-07] MEDS ORDERED: FUROSEMIDE 20 MG TABLET PO SCH (09:00)
[2017-02-07] MEDS ORDERED: CHOLECALCIFEROL 1,000 UNIT CAPSULE PO SCH (09:00)
[2017-02-07] MEDS ORDERED: ASPIRIN 81 MG TABLET.DR PO SCH (09:00)
[2017-02-07] MEDS ORDERED: CLOPIDOGREL BISULFATE 75 MG TABLET PO SCH (09:00)
[2017-02-07] MEDS ORDERED: INSULIN GLARGINE,HUM.REC.ANLOG 100 UNITS/ML VIAL SC SCH (09:00)
[2017-02-07] MEDS ORDERED: SIMVASTATIN 40 MG TABLET PO SCH (21:00)
[2017-02-17] MEDS ORDERED: CYANOCOBALAMIN 1,000 MCG/ML VIAL IJ SCH (09:00)
== END 2017-02-07 09:30 | disposition home or self-care (01) ==
LOC: ER 11:32 → MS 13:30
PROVIDERS: ADMIT Allergy & Immunology; ATTEND Internal Medicine
DX: R11.0 Nausea (principal); R94.31 Abnormal electrocardiogram [ECG] [EKG]; I10 Essential (primary) hypertension; I25.10 Atherosclerotic heart disease of native coronary artery without angina pectoris; F17.210 Nicotine dependence, cigarettes, uncomplicated; Z95.1 Presence of aortocoronary bypass graft; E78.5 Hyperlipidemia, unspecified; I12.9 Hypertensive chronic kidney disease with stage 1 through stage 4 chronic kidney disease, or unspecified chronic kidney disease; N18.3 Chronic kidney disease, stage 3 (moderate)
CPT/HCPCS: 36415; 71020; 80053; 82553; 84484; 85025; 93005; 96372; 96374; 99283; G0378; J2405